=== PATIENT | female | born 1980 | race Two or more races ===

== ENCOUNTER → 2020-07-03 | Outpatient (CLI) | payer BC, SELFPAY ==
[2020-07-08 17:19] LABS: HPV APTIMA, High Risk Negative (Negative)
== END | disposition home or self-care (01) ==
PROVIDERS: Visit Provider Student in an Organized Health Care Education/Training Program
DX: Z12.4 Encounter for screening for malignant neoplasm of cervix (principal); Z11.3 Encounter for screening for infections with a predominantly sexual mode of transmission; N76.0 Acute vaginitis
CPT/HCPCS: 87624; 88175; G0145

== ENCOUNTER 2021-08-27 14:36 | Outpatient (CLI) | payer BC, SELFPAY | END 2021-08-27 23:59 | disposition home or self-care (01) | PROVIDERS: Visit Provider Student in an Organized Health Care Education/Training Program | DX: N77.1 Vaginitis, vulvitis and vulvovaginitis in diseases classified elsewhere (principal) ==